=== PATIENT | male | born 1945 | race Caucasian/White ===

== ENCOUNTER 2021-04-21 13:00 | Outpatient (CLI) | payer MEDICARE, OTHER, SELFPAY ==
--- NOTE | 2021-04-21 13:15 | ECG_ITS ---
Measurements Intervals [place] Rate: 70 P: 93 IN: 282 QRS: -24 QRSD: 111 T: 0 QT: 393 QTc: 424 Interpretive Statements ELECTRONIC ATRIAL PACEMAKER INTRAVENTRICULAR CONDUCTION DELAY VOLTAGE CRITERIA FOR LVH POOR R WAVE PROGRESSION, ANTERIOR LEADS MINIMAL Q WAVES- HIGH LATERAL LEADS BORDERLINE T WAVE ABNORMALITY- INFERIOR LEADS BASELINE ARTIFACT- I, II, III, AVR, AVL, AVF BORDERLINE ECG Electronically Signed On 04-21-2021 13:39:57 CDT by Manjit Marcial D.O.
[2021-04-21 13:54] LABS: Basophils Absolute Auto 0.1 K/mm3 (0.0-0.1); Basophils Percent Auto 0.8 % (0.2-1.2); Eosinophils Absolute Auto 0.4 K/mm3 (0-0.3); Eosinophils Percent Auto 4.1 % (0-4.4); Hematocrit 44.9 % (42.0-52.0); Hemoglobin 15.2 g/dL (14.0-18.0); Immature Granulocyte Absolute 0.08 K/mm3 (0.00-0.031); Immature Granulocyte Percent A 0.9 % (0-0.5); Lymphocytes Absolute Auto 2.38 K/mm3 (0.9-3.2); Lymphocytes Percent Auto 27.6 % (18.3-44.2); Mean Corpuscular HGB Conc 33.9 g/dl (32-36); Mean Corpuscular Hemoglobin 32.6 pg (26-34); Mean Corpuscular Volume 96.4 fl (80-100); Mean Platelet Volume 9.7 fl (7.4-10.4); Monocytes Absolute Auto 0.8 K/mm3 (0.1-0.6); Neutrophils Percent Auto 57.6 % (45.5-73.1); Platelet Count Result 288 k/mm3 (150-375); Red Blood Count 4.66 M/mm3 (4.6-6.20); Red Cell Distribution Width 14.5 % (11.5-14.5); White Blood Count 8.6 K/mm3 (4.5-10.0)
[2021-04-21 14:04] LABS: Anion Gap 6 mmol/L (8-16); Blood Urea Nitrogen 16 mg/dL (9-20); Calcium 9.9 mg/dL (8.4-10.2); Carbon Dioxide 30 mmol/L (22-30); Chloride 103 mmol/L (98-107); Estimated Glomerular Filt Rate > 60; Glucose 116 mg/dL (75-110); Potassium 3.9 mmol/L (3.4-5.0); Sodium 139 mmol/L (137-145)
[2021-04-21 14:07] LABS: Partial Thromboplastin Time 28.4 SECONDS (22.3-36.8)
== END 2021-04-21 13:01 | disposition home or self-care (01) ==
LOC: ANHSURGERY 13:11
PROVIDERS: PCP Nurse Practitioner; Visit Provider Urology
DX: N40.0 Benign prostatic hyperplasia without lower urinary tract symptoms (principal); E11.9 Type 2 diabetes mellitus without complications; Z01.818 Encounter for other preprocedural examination; I45.9 Conduction disorder, unspecified
CPT/HCPCS: 36415; 80048; 85025; 85610; 85730; 87086; 93005

== ENCOUNTER → 2021-05-01 01:05 | Outpatient (CLI) | payer MEDICARE, OTHER, SELFPAY ==
[2021-05-01 19:37] LABS: SARS-CoV-2 RNA PCR Negative
== END ==
PROVIDERS: PCP Nurse Practitioner; Visit Provider Urology
DX: Z01.812 Encounter for preprocedural laboratory examination (principal); Z20.822 Contact with and (suspected) exposure to COVID-19
CPT/HCPCS: C9803; U0003; U0005

== ENCOUNTER 2021-05-04 00:17 | Day surgery (SDC) | payer MEDICARE, OTHER, SELFPAY ==
[2021-04-19 15:15] VITALS: BMI 33.4
[2021-05-04] VITALS (14 sets, daily range): BP systolic 110–158; BP diastolic 58–82; PULSE 60–70; RESP 14–20; TEMP 35.6–36.8; O2SAT 93–100
--- NOTE | 2021-05-04 07:49 | WPDANESEPPF ---
Anes - Initial Pre Proc Eval Procedure: Operation Date: 05/04/21 09:30 Proposed Procedures p Trans Urethral Resection Prostate - Ronald Mcclain MD Date/Time: 05/04/21 07:49 Surgeon: Ronald Mcclain MD Pre Op Diagnosis: bph Patient Data Age: 75 Gender: M Height: 1.71 m Weight: 98.18 kg Allergies Allergy/AdvReac Type Severity Reaction Status Date / Time No Known Allergies Allergy Verified 05/04/21 07:11 Home Medications Medication Instructions Recorded Confirmed Type aspirin [Aspir-Low] 81 mg PO DAILY 04/19/21 05/04/21 History atorvastatin 10 mg HS 04/19/21 05/04/21 History dapagliflozin [Farxiga] 5 mg QAM 04/19/21 05/04/21 History ezetimibe 10 mg HS 04/19/21 05/04/21 History folic acid 1 mg DAILY 04/19/21 05/04/21 History hydrochlorothiazide 12.5 mg DAILY 04/19/21 05/04/21 History methotrexate sodium 15 mg WEEKLY 04/19/21 05/04/21 History metoprolol succinate 25 mg PO DAILY 04/19/21 05/04/21 History montelukast 10 mg HS 04/19/21 05/04/21 History qxejwruymxvy-maszfajo-znyaob 1 tablet PO DAILY 04/19/21 05/04/21 History [Multivitamin 50 Plus] omega-3 fatty acids [Fish Oil] 1,000 mg PO DAILY 04/19/21 05/04/21 History oxybutynin chloride 15 mg PO HS 04/19/21 05/04/21 History tamsulosin 0.4 mg PO HS 04/19/21 05/04/21 History Patient hx anesthesia problems: none Family hx anesthesia problems: none PMFSH Past Medical History Medical History (Updated 05/04/21 @ 07:52 by Aureliano Coronado MD) BPH (benign prostatic hyperplasia) Diabetes Hypercholesterolemia Obesity MELANY on CPAP Pacemaker PVCs (premature ventricular contractions) Rheumatoid arthritis Social History Social History Smoking status: Former smoker Additional smoking assessment comments: STATES 1/2-1PK/DAY-QUIT 1984? Alcohol intake: never Substance use: never Substance use type: does not use Living arrangements: with family Spiritual care concerns: No Anes - Eval Final PreProcedure Day of Procedure 05/04/21 07:49 Patient weight: obese Heart: regular rate and rhythm Lungs: clear to auscultation and normal air movement Airway: Mallampati scale class II Neurological: alert and oriented Last oral intake: >/= 8 hours ASA classification: III Emergent: no Anesthetic plan: proceed Anesthesia type and monitoring: general LMA Informed Consent: The patient's anesthetic plan and its attendant risks and benefits were discussed with the patient/family/POA. Questions were solicited and answers provided to the satisfaction of the patient/family/POA.
[2021-05-04] MEDS: LACTATED RINGERS 1,000 ML 30 ML IV CONT (08:30)
[2021-05-04 08:58] LABS: Glucose Point of Care 154 mg/dl (65-105)
--- NOTE | 2021-05-04 08:58 | WPDHPUPDATE1 ---
History and Physical Update Update Date/Time: 05/04/21 08:58 History and Physical has been reviewed, including an updated exam of the patient. There are NO changes in the patient's condition. Risks, benefits, and alternatives have been discussed and questions answered. Patient agrees to proceed with procedure. Proceed with TURP
[2021-05-04] MEDS: ceFAZolin 2 GM/D5W 50 ML 2 GM/50 ML BAG IVPB (09:12)
--- NOTE | 2021-05-04 10:28 | W.PM.PROC2 ---
Procedure Note - Detailed Date of Procedure 05/04/21 Pre-op Diagnosis bph Post-op Diagnosis same Procedure Performed Transurethral resection of prostate Surgeon Ronald Mcclain MD Anesthesia general Description of Procedure The patient was brought to the operative suite where he is prepped and draped in routine sterile fashion while in the dorsal lithotomy position after the uneventful induction of a [general LMA/spinal] anesthetic. A 24 Arabic resectoscope sheath was placed into his bladder. He had no urethral strictures. The patient had trilobar hyperplasia with a moderate size median lobe. The bladder itself was endoscopically normal, showing no mucosal hyperemia, intravesical neoplasm or foreign bodies. There was a single, orthotopic ureteral orifice bilaterally. These orifices were identified and preserved throughout the remainder of the procedure. Attention was 1st turned to resection of the median lobe . This resection was undertaken from the bladder neck to the verumontanum and carried out until the transverse fibers of the bladder neck were identified. The left lateral lobe was then resected starting at the 6 o'clock position, working counter clockwise to the 12 o'clock position. Again, resection was carried out from the bladder neck to the verumontanum until the capsular fibers of the prostate were identified. The right lateral lobe was resected in a similar fashion starting at the 6 o'clock position working clockwise to the 12 o'clock position and carried out until the capsular fibers of the prostate were identified. Apical tissue was then circumferentially resected. All chips were evacuated from the bladder using an Ellik evacuator. Hemostasis was obtained with electric cautery. The ureteral orifices were again inspected and found to be without injury. Estimated blood loss throughout this procedure was []cc . The patient was taken to recovery room having tolerated this well. Estimated Blood Loss 100 Drains Yes Packing No Pathology yes Complications No immediate complications Condition stable Disposition PACU
[2021-05-04 10:41] LABS: Glucose Point of Care 161 mg/dl (65-105)
[2021-05-04] MEDS: fentaNYL CITRATE INJ (*CRX) 100 MCG/2 ML VIAL 25 MCG IV PUSH ×4 (11:35→11:44)
--- NOTE | 2021-05-04 12:31 | ADMGEN ---
This patient, Gina Song, was admitted to Medical Room 255-. Patient/family oriented to hospital policies and general routines including ID bracelet, bed and alarms, visiting hours, pain management, procedures, bathroom and other care routines, personal items, smoking policy, room service/diet, and visiting hours. Information on how to activate the Rapid Response Team has been discussed. Patient/Family are encouraged to report perceived risks to care and to ask questions if they do not understand what they are told or what they should do.
[2021-05-04 13:15] LABS: Glucose Point of Care 188 mg/dl (65-105)
[2021-05-04] MEDS: HYOSCYAMINE SULFATE 0.125 MG TABLET SUBLINGUAL (13:16)
[2021-05-04] MEDS: DEXTROSE 5%/LACTATED RINGERS 1,000 ML 125 ML IV CONT (13:17)
--- NOTE | 2021-05-04 17:00 | PCRCNOTE ---
PT. DOES NOT WISH TO WEAR CPAP WHILE HERE IN HOSPITAL.
[2021-05-04] MEDS: DOCUSATE SODIUM 100 MG CAPSULE PO (17:13)
[2021-05-04] MEDS: EZETIMIBE 10 MG TABLET BY MOUTH (20:50)
[2021-05-04] MEDS: MONTELUKAST SODIUM 10 MG TABLET BY MOUTH (20:50)
[2021-05-04] MEDS: ATORVASTATIN 10 MG TABLET BY MOUTH (20:50)
[2021-05-05 00:25] VITALS: BP 111/57; PULSE 90; RESP 20; TEMP 36.1; O2SAT 93
[2021-05-05 05:08] VITALS: BP 115/63; PULSE 67; RESP 20; TEMP 36.1; O2SAT 96
[2021-05-05 05:36] LABS: Hematocrit 39.6 % (42.0-52.0); Hemoglobin 13.6 g/dL (14.0-18.0)
[2021-05-05 05:45] LABS: Anion Gap 10 mmol/L (8-16); Blood Urea Nitrogen 18 mg/dL (9-20); Calcium 9.1 mg/dL (8.4-10.2); Carbon Dioxide 25 mmol/L (22-30); Chloride 104 mmol/L (98-107); Estimated CRCL calculation 64 ml/min; Estimated Glomerular Filt Rate > 60; Glucose 171 mg/dL (75-110); Potassium 4.3 mmol/L (3.4-5.0); Sodium 139 mmol/L (137-145)
--- NOTE | 2021-05-05 07:58 | WPDANESPN ---
Anes - Prog Note Post-Op Date/Time: 05/05/21 07:58 Cardiovascular status: normal Respiratory status: normal Airway patency: baseline Mental status: baseline Post-Op hydration status: normal Vital Signs: Last Vital Signs Temp 97 F L 05/05/21 05:08 Pulse 67 05/05/21 05:08 Resp 20 05/05/21 05:08 BP 115/63 05/05/21 05:08 Pulse Ox 96 05/05/21 05:08 Pain Score (VAS): 0 I/O: Intake & Output 05/04/21 05/04/21 05/05/21 15:59 23:59 07:59 Intake Total 1950 800 290 Output Total 1750 1525 1450 Balance 200 -807 -1160 Laboratory Tests 05/05/21 05:07 05/05/21 05:07 05/04/21 05/04/21 05/04/21 08:55 10:38 13:13 Hgb Hct Sodium Potassium Chloride Carbon Dioxide Anion Gap BUN Creatinine Estim Creat Clear Calc Estimated GFR Glucose POC Capillary Glucose 154 H 161 H 188 H Calcium 05/05/21 05/05/21 05:07 05:07 Hgb 13.6 L Hct 39.6 L Sodium 139 Potassium 4.3 Chloride 104 Carbon Dioxide 25 Anion Gap 10 BUN 18 Creatinine 1.00 Estim Creat Clear Calc 64 Estimated GFR > 60 Glucose 171 H POC Capillary Glucose Calcium 9.1 Post-procedural complaints: none Patient Feedback: Patient satisfied with anesthetic care.
--- NOTE | 2021-05-05 07:59 | WPDUROPN2 ---
Progress Note: A&P Assessment and Plan (1) BPH (benign prostatic hyperplasia): Code(s): N40.0 - Benign prostatic hyperplasia without lower urinary tract symptoms Status: Acute Additional Plan Have turned CBI off completely. If remains clear will discharged later this afternoon with Mcintosh catheter. Follow-up on Monday for Mcintosh catheter removal. Subjective Subjective Date/Time Seen: 05/05/21 07:59 Post Op day: 1 ( transurethral section of prostate) Principal diagnosis: BPH Interval history: doing well at this time without any major complaints. Urine is clear with very minimal CBI. Review of Systems Review of Systems: All systems reviewed & are unremarkable except as noted in HPI and below Exam Const: General: cooperative and comfortable Eyes: General: appearance normal, both eyes and all related structures Chest: Chest palpation & inspection: normal inspection of the chest Resp: Effort & Inspection: normal respiratory effort Cardio: Rate: regular rate Rhythm: regular rhythm Urinary Catheter: Urinary Catheter: patent and draining and urine clear Objective Data Vital Signs Vital Signs: Vital Signs - 24 hr 05/04/21 10:33 05/04/21 10:45 05/04/21 11:00 Temperature 36.8 C Pulse Rate 70 63 65 Respiratory Rate 14 16 14 Blood Pressure 145/82 H 130/77 130/81 Pulse Oximetry 98 100 100 05/04/21 11:15 05/04/21 11:30 05/04/21 11:45 Temperature Pulse Rate 64 68 64 Respiratory Rate 14 14 14 Blood Pressure 158/79 H 143/78 H 133/73 Pulse Oximetry 96 97 93 05/04/21 12:40 05/04/21 12:55 05/04/21 13:25 Temperature 35.8 C L 35.8 C L 35.6 C L Pulse Rate 61 62 60 Respiratory Rate 16 18 18 Blood Pressure 131/78 140/76 135/61 Pulse Oximetry 96 95 95 05/04/21 14:25 05/04/21 18:25 05/04/21 20:00 Temperature 35.6 C L 35.7 C L Pulse Rate 68 63 65 Respiratory Rate 18 18 20 Blood Pressure 123/68 126/58 L Pulse Oximetry 97 96 95 05/04/21 20:35 05/05/21 00:25 05/05/21 05:08 Temperature 36.1 C L 36.1 C L 36.1 C L Pulse Rate 65 90 67 Respiratory Rate 20 20 20 Blood Pressure 110/63 111/57 L 115/63 Pulse Oximetry 95 93 96 Intake/Output Intake/Output: Intake & Output 05/02/21 05/03/21 05/04/21 05/05/21 23:59 23:59 23:59 23:59 Intake Total 3620 290 Output Total 3275 1450 Balance 345 -1160 Meds/Results Medications: Active Medications Generic Name Dose Route Start Last Admin Trade Name Freq PRN Reason Stop Dose Admin Hydrocodone Bitart/Acetaminophen 1 tab 05/04/21 12:00 Hydrocodone/Acetaminophen (*Crx) 5-325 Mg Tablet PO Q4H PRN Pain Rated 1-6 Atorvastatin Calcium 10 mg 05/04/21 21:00 05/04/21 20:50 Atorvastatin 10 Mg Tablet BY MOUTH 10 mg HS CHANEL Administration Cephalexin HCl 500 mg 05/05/21 09:00 Cephalexin 500 Mg Capsule PO QID CHANEL Docusate Sodium 100 mg 05/04/21 17:00 05/04/21 17:13 Docusate Sodium 100 Mg Capsule PO 100 mg BID CHANEL Administration Ezetimibe 10 mg 05/04/21 21:00 05/04/21 20:50 Ezetimibe 10 Mg Tablet BY MOUTH 10 mg HS CHANEL Administration Hydrochlorothiazide 12.5 mg 05/05/21 09:00 Hydrochlorothiazide 12.5 Mg Capsule BY MOUTH DAILY CHANEL Hyoscyamine 0.125 mg 05/04/21 12:00 05/04/21 13:16 Hyoscyamine Sulfate 0.125 Mg Tablet SUBLINGUAL 0.125 mg Q6H PRN Administration Bladder Spasm Dextrose/Lactated Ringer's 1,000 mls @ 125 mls/hr 05/04/21 12:00 05/04/21 17:18 Dextrose 5%/Lactated Ringers IV CONT 0 mls/hr .Q8H CHANEL Infusion Metoprolol Succinate 25 mg 05/05/21 09:00 Metoprolol Succinate Ext Rel 25 Mg Tabcr PO DAILY CHANEL Montelukast Sodium 10 mg 05/04/21 21:00 05/04/21 20:50 Montelukast Sodium 10 Mg Tablet BY MOUTH 10 mg HS CHANEL Administration Morphine Sulfate 2 mg 05/04/21 12:00 Morphine Sulfate (*Crx) 2 Mg/Ml Inj IV PUSH Q2H PRN Pain Rated 7-10 Naloxone HCl 0.1 mg 05/04/21 12:00 Naloxone Hcl 0.4 Mg/Ml Vial
--- NOTE | 2021-05-05 08:03 | PM.DS ---
DS: Admitting Diagnosis Admitting Diagnosis Admitting Diagnosis: BPH DS: Discharge Diagnosis Discharge Diagnosis (1) BPH (benign prostatic hyperplasia): Code(s): N40.0 - Benign prostatic hyperplasia without lower urinary tract symptoms Status: Acute DS: Summary Hospital Course Hospital Course: uneventful transurethral resection of prostate. urine clear postoperative day 1. Ambulating and tolerating a diet well. Time Spent with Patient Time attestation: Total time spent providing and/or coordinating discharge services: Patient had an uneventful transurethral resection of his prostate. His urine remained clear postoperative day 1. Tolerating a diet and ambulating. Patient to be discharged home with Mcintosh catheter and have it removed on Monday. Exam Const: General: cooperative and comfortable Chest: Chest palpation & inspection: normal inspection of the chest Resp: Effort & Inspection: normal respiratory effort Cardio: Rate: regular rate Rhythm: regular rhythm Urinary Catheter: Urinary Catheter: patent and draining and urine clear DS: Data Data Completed and Pending Pending studies at discharge: Pending at discharge 05/04/21 10:21 Surgical [PTH] Routine Labs on day of discharge: Labs from last 24 hours 05/05/21 05/05/21 05/04/21 05:07 05:07 13:13 Hgb 13.6 L Hct 39.6 L Sodium 139 Potassium 4.3 Chloride 104 Carbon Dioxide 25 Anion Gap 10 BUN 18 Creatinine 1.00 Estim Creat Clear Calc 64 Estimated GFR > 60 Glucose 171 H POC Capillary Glucose 188 H Calcium 9.1 05/04/21 05/04/21 10:38 08:55 Hgb Hct Sodium Potassium Chloride Carbon Dioxide Anion Gap BUN Creatinine Estim Creat Clear Calc Estimated GFR Glucose POC Capillary Glucose 161 H 154 H Calcium Discharge Plan Discharge Patient Disposition: Home, Self-Care Discharge Instructions: Discharged home with Mcintosh catheter. Follow-up on Monday for Mcintosh catheter removal. Call for appointment. Instruct patient on use of leg bag and catheter care. Stand Alone Forms: General Discharge Instructions Discharge Medications: Held aspirin 81 mg Tablet,Delayed Release (Dr/Ec) 81 mg PO DAILY RF: 0 Hold Instructions: Resume on 05/10/21. Multivitamin 50 Plus Tablet 1 tablet PO DAILY RF: 0 Hold Instructions: Resume on 05/10/21. omega-3 fatty acids Capsule 1,000 mg PO DAILY RF: 0 Hold Instructions: Resume on 05/10/21. No Action oxybutynin chloride 15 mg tablet extended release 24 hr 15 mg PO HS RF: 0 atorvastatin 10 mg tablet 10 mg HS RF: 0 methotrexate sodium 2.5 mg tablet 15 mg WEEKLY RF: 0 tamsulosin 0.4 mg capsule 0.4 mg PO HS RF: 0 folic acid 1 mg tablet 1 mg DAILY RF: 0 montelukast 10 mg tablet 10 mg HS RF: 0 hydrochlorothiazide 25 mg tablet 12.5 mg DAILY RF: 0 metoprolol succinate 25 mg tablet extended release 24 hr 25 mg PO DAILY RF: 0 ezetimibe 10 mg tablet 10 mg HS RF: 0 Farxiga 5 mg tablet 5 mg QAM RF: 0
[2021-05-05] MEDS: DOCUSATE SODIUM 100 MG CAPSULE PO (09:39)
[2021-05-05] MEDS: hydroCHLOROthiazide 12.5 MG CAPSULE BY MOUTH (09:39)
[2021-05-05] MEDS: CEPHALEXIN 500 MG CAPSULE PO (09:39)
[2021-05-05 09:40] VITALS: PULSE 72
[2021-05-05] MEDS: METOPROLOL SUCCINATE EXT REL 25 MG TABCR PO (09:40)
[2021-05-05 10:00] VITALS: BP 124/65; PULSE 63; RESP 18; TEMP 35.9; O2SAT 96
--- NOTE | 2021-05-05 12:27 | PC.NURSE ---
DR GORMAN NURSE NOTIFIED OF POSSIBLE INTERACTION BETWEEN BACTRIM AND METHOTREXATE. SHE WILL ASK MD AND THEN CALL PATIENT AND LET HIM KNOW IF HE SHOULD HOLD MED.
--- NOTE | 2021-05-05 12:40 | PC.NURSE ---
Taught patient and - how to change from large gravity drainage bag (for urinary catheter) to leg bag and back again. Provided patient with new gravity drainage bag, clean urinal, catheter plug for 3-way catheter, and extra leg strap for chavis catheter. Instructed on care of chavis catheter and provided written materials on same. Demonstrated to - emptying of catheter, switching bags and placing leg straps and chavis stabilization strap. Instructed patient and on when to call MD and when to return to ED. returned demonstrations and both patient and verbalized understanding of all instructions given.
== END 2021-05-05 12:45 | disposition home or self-care (01) ==
LOC: ANHSURGERY 06:58 → ANH2MED 12:16
PROVIDERS: PCP Nurse Practitioner; Visit Provider Urology
PROC: 0VT08ZZ Resection of Prostate, Via Natural or Artificial Opening Endoscopic (ICD-10-PCS; CPT 52601; principal; 2021-05-04 09:30)
DX: N40.1 Benign prostatic hyperplasia with lower urinary tract symptoms (principal); N39.41 Urge incontinence; R35.1 Nocturia; E11.9 Type 2 diabetes mellitus without complications; E78.00 Pure hypercholesterolemia, unspecified; G47.33 Obstructive sleep apnea (adult) (pediatric); I49.3 Ventricular premature depolarization; M06.9 Rheumatoid arthritis, unspecified; Z95.0 Presence of cardiac pacemaker; Z79.82 Long term (current) use of aspirin; Z79.84 Long term (current) use of oral hypoglycemic drugs; E66.9 Obesity, unspecified; Z68.33 Body mass index [BMI] 33.0-33.9, adult; Z87.891 Personal history of nicotine dependence
CPT/HCPCS: 52601; 36415; 80048; 82948; 85014; 85018; 88305; A9270; J0690; J1100; J2370; J2405; J2704; J3010; J7120; J7121